=== PATIENT | male | born 1960 | race African-American/Black ===

== ENCOUNTER → 2016-10-16 | Outpatient (CLI) | payer OTHER ==
[~2016-10-16] MED LIST: ASCORBIC ACID100 MG PO; ASCORBIC ACID500 M3 PO; AUGMENTIN875 MG PO; BLACK SEED PO; CALCIUM 500 MG1 EACH PO; CALCIUM WITH M1 EAC2 PO; CO Q-1010 MG PO; DAILY VITAMIN1 EAC8 PO; DELTASONE20 M1 PO; ELIQUIS5 MG PO; FLAX SEED OIL1 EACH PO; FLAX, FISH & B1 EACH PO; KRILL OIL500 MG PO; LEVAQUIN500 MG PO; LEVOTHYROXINE150 MCG PO; LOMOTIL TABLET1 EACH PO; MAALOX ADVANCE355 ML PO; MAGNESIUM100 MG PO; OCTREOTIDE100 MCG/2 IV; OMEPRAZOLE20 MG PO; ONE-A-DAY ESSE1 EAC1 PO; OXYCODONE HCL5 MG PO; PROMETHAZINE HC25 M1 PO; REGLAN10 MG PO; TEMODAR180 MG PO; VITAMIN D1000 INTUN PO; VITAMIN D31000 UNIT PO; XELODA150 MG PO; XELODA500 MG PO; ZOFRAN ODT4 MG PO
== END | disposition home or self-care (01) ==
LOC: NUC 13:45
DX: Z53.8 Procedure and treatment not carried out for other reasons (principal)

== ENCOUNTER 2017-07-18 13:30 | Emergency (ER) | payer OTHER ==
[~2017-07-18] VITALS: Ht 182.9 cm; Wt 113.1 kg
[2017-07-18 14:21] LABS: HEMATOCRIT 46.4 % (38.0-50.0); MCH 29.8 PG (29.0-34.0); MCHC 33.2 G/DL (30.0-36.0); MCV 89.9 FL (86-99); MEAN PLAT.VOLUME 12.4 uM^3 (9.0-12.4); PLATELET COUNT 187 K/uL (156-360); RBC DIS.WIDTH-CV 13.5 % (11.8-14.6); RBC DIS.WIDTH-SD 44.7 % (39-53); RED BLOOD COUNT 5.16 M/uL (4.00-5.50); WHITE BLOOD COUNT 12.1 K/uL (4.1-10.2)
[2017-07-18 14:32] LABS: CHLORIDE 102 mEq/L (99-109); POTASSIUM 4.2 mEq/L (3.7-5.4); SODIUM 136 mEq/L (136-147)
[2017-07-18 14:34] LABS: GLUCOSE 83 mg/dL (70-99)
[2017-07-18 14:36] LABS: ANION GAP 7 MEQ/L (2-14); TOTAL BILIRUBIN 2.8 mg/dL (0.0-1.0)
[2017-07-18 14:38] LABS: ALKALINE PHOSPHATASE 258 IU/L (3-129); GFR ESTIMATE (CALCULATED) > 59 mL/min/
[2017-07-18 14:39] LABS: UREA NITROGEN (BUN) 11 mg/dL (9-23)
[2017-07-18 14:40] LABS: DIRECT BILIRUBIN 1.3 mg/dL (0.0-0.3)
[2017-07-18 14:41] LABS: LIPASE 24 U/L (1.0-51.0)
[2017-07-18 15:59] LABS: ADD MIUA? YES; BILIRUBIN NEGATIVE; BLOOD NEGATIVE; COLOR AMBER ((YELLOW)); GLUCOSE (STRIP) NEGATIVE; KETONES NEGATIVE; LEUKOCYTES NEGATIVE; NITRITE NEGATIVE; PROTEIN (STRIP) 30; SPECIFIC GRAVITY 1.027 (1.000-1.030); UROBILINOGEN 0.2 MG/DL (0.2-1.0)
[2017-07-18 16:03] LABS: BACTERIA RARE /HPF; EPITHELIAL CELLS NONE SEEN /HPF; HYALINE CASTS 0-5 /LPF; MUCUS 2+ /LPF; RED BLOOD CELLS 0-5 /HPF (0-5); UCUL ADDED? NO; WHITE BLOOD CELLS 0-5 /HPF (0-5)
[2017-07-18] MEDS ORDERED: PERCOCET 5/31 TABLET PO (17:20)
[2017-07-18] MEDS ORDERED: OXYCODONE HCL5 M1 PO (17:22)
[2017-07-18 17:32] VITALS: BP 125/86
== END 2017-07-18 17:34 | disposition home or self-care (01) ==
LOC: EME 13:30
PROVIDERS: Emergency Medicine
DX: R10.9 Unspecified abdominal pain (principal); Z85.05 Personal history of malignant neoplasm of liver; Z85.850 Personal history of malignant neoplasm of thyroid; Z90.49 Acquired absence of other specified parts of digestive tract; E89.0 Postprocedural hypothyroidism
CPT/HCPCS: 74176; 80048; 80076; 81003; 83690; 85027; 87086; 99281; 99284